=== PATIENT | female | born 1965 | race Caucasian/White ===

== ENCOUNTER 2016-06-08 11:09 | Emergency (ER) | payer OTHER ==
[~2016-06-08] VITALS: Ht 165.1 cm; Wt 80.5 kg
[~2016-06-08 11:09] MED LIST: CARI350 PO; CLON0.2T PO; CLON1 PO; HYDR25TA PO; INSLAN SQ; INSNOV SQ; LEVO25TA9 PO; LISI-662 PO; METH10 PO; OMEG1CAP6 PO
[2016-06-08 11:32] LABS: GLUCOSE,POINT OF CARE 226 MG/DL (70-110)
[2016-06-08] MEDS ORDERED: PARO10TA89 PO (11:43)
[2016-06-08 11:49] LABS: BASOPHILS % (AUTO) 0.4 % (0.0-2.0); HEMATOCRIT 28.9 % (36-46); HEMOGLOBIN 9.3 g/dL (12.0-16.0); LYMPHOCYTES # (AUTO) 1.8 K/uL (1.0-4.8); LYMPHOCYTES % (AUTO) 22.4 % (22.0-44.0); MEAN CORPUSCULAR HEMOGLOBIN 28.3 pg (26.0-34.0); MEAN CORPUSCULAR HGB CONC 32.2 G/dL (31.0-37.0); MEAN CORPUSCULAR VOLUME 88 fL (80-100); MONOCYTES # (AUTO) 0.4 K/uL (0.1-1.0); MONOCYTES % (AUTO) 5.5 % (2.0-9.0); NEUTROPHILS # (AUTO) 5.6 K/uL (1.8-7.7); NEUTROPHILS % (AUTO) 70.7 % (40.0-70.0); PLATELET COUNT (AUTO) 245 K/uL (150-450); RED BLOOD CELL COUNT(AUTO) 3.29 MIL/uL (4.00-5.20); RED CELL DISTRIBUTION WIDTH 14.1 % (11.5-14.5); WHITE BLOOD COUNT (AUTO) 7.9 K/uL (4.5-11.0)
[2016-06-08 11:59] LABS: ANION GAP 8 mmol/L (8-16); CARBON DIOXIDE 29 mmol/L (22-29); CHLORIDE 97 mmol/L (98-107); CREATININE 4.21 mg/dL (0.60-1.30); GLOMERULAR FILTR. RATE CALC 11 mL/min (>60); POTASSIUM 3.8 mmol/L (3.5-5.1); SODIUM SERUM 134 mmol/L (136-145); UREA NITROGEN, BLOOD 64 mg/dL (7-18)
[2016-06-08 12:05] LABS: ALANINE AMINOTRANSFERASE 28 U/L (12-78); ALBUMIN 3.1 g/dL (3.4-5.0); ASPARTATE AMINOTRANSFERASE 21 U/L (15-37); BILIRUBIN,TOTAL 0.2 mg/dL (0.1-1.0); TOTAL PROTEIN, SERUM 6.9 g/dL (6.4-8.2)
[2016-06-08] MEDS ORDERED: INSULIN REGULAR, HUMAN 100 UNITS/ML SQ ONE (12:30)
[2016-06-08 12:52] LABS: ADD UA MICROSCOPIC YES; APPEARANCE,URINE CLOUDY (CLEAR); GLUCOSE, URINE (UA) 100 mg/dL (NEGATIVE); KETONES,URINE NEGATIVE (NEGATIVE); LEUKOCYTE ESTERASE ,URINE NEGATIVE (NEGATIVE); OCCULT BLOOD,URINE NEGATIVE (NEGATIVE); PH,URINE 5.5 (5.0-8.0); PROTEIN,URINE SEE CONFIRM (NEGATIVE)
[2016-06-08 12:58] LABS: SULFOSALICYLIC ACID,URINE 3+ (Negative)
[2016-06-08 12:59] LABS: RBC,URINE 0-2 /HPF (0-2); SQUAMOUS EPITHELIAL CELL,UR Moderate /LPF (None Seen)
[2016-06-08 13:00] LABS: COARSE GRANULAR CASTS,URINE 0-2 /LPF (None Seen); FINE GRANULAR CASTS,URINE 0-2 /LPF (None Seen); RENAL EPITHELIAL CELLS,URINE Few /LPF (None Seen)
[2016-06-08 13:27] LABS: GLUCOSE,POINT OF CARE 185 MG/DL (70-110)
[2016-06-08 18:25] VITALS: BP 129/52
== END 2016-06-08 18:26 | disposition home or self-care (01) ==
LOC: EEVIPCON 11:10 → EMS 11:10
DX: Z02.89 Encounter for other administrative examinations (principal); E11.65 Type 2 diabetes mellitus with hyperglycemia; N19 Unspecified kidney failure; I10 Essential (primary) hypertension; J44.9 Chronic obstructive pulmonary disease, unspecified; E05.90 Thyrotoxicosis, unspecified without thyrotoxic crisis or storm; F17.210 Nicotine dependence, cigarettes, uncomplicated; F11.90 Opioid use, unspecified, uncomplicated; F15.90 Other stimulant use, unspecified, uncomplicated; Z79.4 Long term (current) use of insulin
CPT/HCPCS: 36415; 71010; 80053; 80307; 81001; 81002; 82962; 85025; 87086; 93005; 96372; 99285; G0480; J1815; 96374

== ENCOUNTER 2016-10-17 23:51 | Emergency (ER) | payer OTHER ==
[~2016-10-17] VITALS: Ht 165.1 cm; Wt 77.3 kg
[~2016-10-17 23:51] MED LIST changes: +PARO10TA89 PO
[2016-10-18] MEDS ORDERED: CLON-570 PO (00:03)
[2016-10-18] MEDS ORDERED: SULF1TAB42 PO (00:03)
[2016-10-18] MEDS ORDERED: HYD50 PO (00:03)
[2016-10-18] MEDS ORDERED: HYDR-2924 PO (00:03)
[2016-10-18] MEDS ORDERED: CARV6.2534 PO (00:03)
[2016-10-18] MEDS ORDERED: LEVO50 PO (00:03)
[2016-10-18] MEDS ORDERED: FURO80 PO (00:03)
[2016-10-18 00:43] LABS: BASOPHILS % (AUTO) 0.5 % (0.0-2.0); EOSINOPHILS % (AUTO) 0.8 % (1.0-6.0); HEMATOCRIT 22.8 % (36-46); HEMOGLOBIN 7.7 g/dL (12.0-16.0); LYMPHOCYTES # (AUTO) 1.7 K/uL (1.0-4.8); LYMPHOCYTES % (AUTO) 13.3 % (22.0-44.0); MEAN CORPUSCULAR HEMOGLOBIN 29.4 pg (26.0-34.0); MEAN CORPUSCULAR HGB CONC 33.7 G/dL (31.0-37.0); MEAN CORPUSCULAR VOLUME 87 fL (80-100); NEUTROPHILS # (AUTO) 10.1 K/uL (1.8-7.7); NEUTROPHILS % (AUTO) 77.4 % (40.0-70.0); PLATELET COUNT (AUTO) 218 K/uL (150-450); RED BLOOD CELL COUNT(AUTO) 2.61 MIL/uL (4.00-5.20); RED CELL DISTRIBUTION WIDTH 13.1 % (11.5-14.5); WHITE BLOOD COUNT (AUTO) 13.1 K/uL (4.5-11.0)
[2016-10-18 00:52] LABS: ALANINE AMINOTRANSFERASE 14 U/L (12-78); ALBUMIN 2.6 g/dL (3.4-5.0); ANION GAP 9 mmol/L (8-16); ASPARTATE AMINOTRANSFERASE 14 U/L (15-37); BILIRUBIN,TOTAL 0.2 mg/dL (0.1-1.0); CALCIUM, TOTAL 7.8 mg/dL (8.8-10.5); CARBON DIOXIDE 26 mmol/L (22-29); CHLORIDE 96 mmol/L (98-107); CREATININE 4.17 mg/dL (0.60-1.30); GLOMERULAR FILTR. RATE CALC 11 mL/min (>60); SODIUM SERUM 131 mmol/L (136-145); TOTAL PROTEIN, SERUM 6.6 g/dL (6.4-8.2); UREA NITROGEN, BLOOD 53 mg/dL (7-18)
[2016-10-18 00:53] LABS: POTASSIUM 2.9 mmol/L (3.5-5.1)
[2016-10-18] MEDS ORDERED: POTASSIUM CHLORIDE 10% 40 MEQ/30 ML LIQUID UDCUP PO ONE (03:00)
[2016-10-18 03:19] VITALS: BP 135/76
== END 2016-10-18 03:22 | disposition home or self-care (01) ==
LOC: EMS 23:52
DX: R41.82 Altered mental status, unspecified (principal); E87.6 Hypokalemia; N28.9 Disorder of kidney and ureter, unspecified; K59.00 Constipation, unspecified; E05.90 Thyrotoxicosis, unspecified without thyrotoxic crisis or storm; B19.20 Unspecified viral hepatitis C without hepatic coma; E11.9 Type 2 diabetes mellitus without complications; F17.210 Nicotine dependence, cigarettes, uncomplicated; F32.9 Major depressive disorder, single episode, unspecified; I10 Essential (primary) hypertension; J44.9 Chronic obstructive pulmonary disease, unspecified; Z79.4 Long term (current) use of insulin; Z99.2 Dependence on renal dialysis
CPT/HCPCS: 36415; 80053; 80307; 85025; 99284; 99406; G0480